=== PATIENT | female | born 1960 | race African-American/Black ===

== ENCOUNTER 2019-06-01 18:18 | Emergency (ER) | payer MEDICARE, MEDICAID ==
[~2019-06-01] VITALS: Ht 165.1 cm; Wt 69.0 kg
[~2019-06-01 18:18] MED LIST: [UNRECOGNIZED DRUG - OTHER]; [UNRECOGNIZED DRUG - OTHER]
[2019-06-01] MEDS ORDERED: SODIUM CHLORIDE 0.9% 1,000 ML IV ONE (20:38)
[2019-06-01] MEDS ORDERED: PANTOPRAZOLE SODIUM 40 MG/VIAL IV STA (20:38)
[2019-06-01] MEDS ORDERED: FAMOTIDINE 20MG/2ML VIAL IV STA (20:38)
[2019-06-01] MEDS ORDERED: DIATR MEGLU/DIATRIZOATE SOLN 30ML ONE (20:59)
[2019-06-01 21:31] LABS: BASOPHILS % 0.6 % (0.0-2.0); EOSINOPHILS % 7.5 % (0.0-5.0); HEMATOCRIT. 34.6 % (36.0-48.0); HEMOGLOBIN. 11.5 g/dL (12.0-16.0); LYMPHOCYTES % 35.4 % (20.0-50.0); MEAN CORPUSCULAR HEMOGLOBIN 27.8 pg (28.0-32.0); MEAN CORPUSCULAR VOLUME 83.8 fL (81.0-99.0); MEAN PLATELET VOLUME 6.6 fl (7.4-10.4); MONOCYTES % 10.7 % (2.0-8.0); NEUTROPHILS % 45.8 % (40.0-76.0); PLATELET 262 x1000/uL (130-400); RED BLOOD CELL COUNT 4.13 mill/uL (4.2-5.4); RED CELL DISTRIBUTION WIDTH 14.5 % (11.6-14.6)
[2019-06-01 21:38] LABS: CHLORIDE 101 mEq/L (98-107)
[2019-06-01 21:42] LABS: ETHANOL BLOOD < 10 mg/dL
[2019-06-01 22:15] LABS: CLARITY URINE CLEAR (CLEAR); COLOR URINE YELLOW (YELLOW); KETONES URINE NEGATIVE (NEGATIVE); LEUKOCYTE ESTERASE URINE NEGATIVE (NEGATIVE); NITRITE URINE NEGATIVE (NEGATIVE); OCCULT BLOOD URINE 3+ (NEGATIVE); PH URINE 5.5 (4.5-8.0); PROTEIN URINE NEGATIVE (NEGATIVE); UROBILINOGEN URINE 0.2 E.U./dL (0.2-1.0)
[2019-06-01] MEDS ORDERED: POTASSIUM CHLORIDE 20MEQ TABLET SR PO ONE (22:15)
[2019-06-01 22:26] LABS: *BENZODIAZEPINES SCREEN URINE NEGATIVE (NEGATIVE); *COCAINE SCREEN URINE NEGATIVE (NEGATIVE); CANNABINOID URINE SCREEN NEGATIVE (NEGATIVE); METHADONE URINE SCREEN NEGATIVE (NEGATIVE); OPIATES URINE SCREEN NEGATIVE (NEGATIVE); PHENCYCLIDINE URINE SCREEN NEGATIVE (NEGATIVE)
[2019-06-01 22:27] LABS: *AMPHETAMINES SCREEN URINE NEGATIVE (NEGATIVE); *BARBITURATES SCREEN URINE NEGATIVE (NEGATIVE)
[2019-06-02] MEDS ORDERED: METRONIDAZOLE 500MG TABLET PO ONE (01:30)
[2019-06-02] MEDS ORDERED: LEVOFLOXACIN 500MG TABLET PO ONE (01:30)
[2019-06-02 02:19] VITALS: BP 162/78
== END 2019-06-02 02:22 | disposition home or self-care (01) ==
LOC: ER 18:18
DX: K52.9 Noninfective gastroenteritis and colitis, unspecified (principal); K62.5 Hemorrhage of anus and rectum; D64.9 Anemia, unspecified; I10 Essential (primary) hypertension
CPT/HCPCS: 36415; 74177; 80053; 80305; 80320; 81003; 83690; 85025; 85610; 86850; 86900; 86901; 96374; 96375; 99284; C9113; J3490; J7030; Q9963; G0480

== ENCOUNTER 2022-05-07 08:43 | Emergency (ER) | payer MEDICARE, MEDICAID ==
[~2022-05-07] VITALS: Ht 165.1 cm; Wt 69.0 kg
[2022-05-07] MEDS ORDERED: ONDANSETRON HCL 4MG/2ML INJ IV STA (10:43)
[2022-05-07] MEDS ORDERED: MORPHINE SULFATE 4 MG/ML CPJ (NOT FOR IM USE) IV STA (10:43)
[2022-05-07] MEDS ORDERED: SODIUM CHLORIDE 0.9% 1,000 ML IV ONE (11:00)
[2022-05-07] MEDS ORDERED: KETOROLAC 15MG/ML VIAL IV ONE ×2 (11:00→11:45)
[2022-05-07] MEDS ORDERED: ETOMIDATE 2MG/ML 10ML VIAL IV ONE (11:45)
[2022-05-07] MEDS ORDERED: IBUP-2028 MT (14:10)
[2022-05-07 15:07] VITALS: BP 125/74
== END 2022-05-07 15:08 | disposition home or self-care (01) ==
LOC: ER 08:43
DX: S43.005A Unspecified dislocation of left shoulder joint, initial encounter (principal); X58.XXXA Exposure to other specified factors, initial encounter; Y93.89 Activity, other specified; Y92.89 Other specified places as the place of occurrence of the external cause; Y99.8 Other external cause status
CPT/HCPCS: 73030; 96361; 96374; 96375; 99285; J1885; J2405; J3490; J7030; L3670